=== PATIENT | female | born 1935 | race Caucasian/White ===

== ENCOUNTER 2017-06-13 10:09 | Emergency (ER) | payer BC, MEDICARE ==
[~2017-06-13] VITALS: Ht 160 cm; Wt 59.0 kg
--- NOTE | ~2017-06-13 | CT71 ---
[facility] A Service of [facility] & [facility] RADIOLOGY TEXT RESULTS PATIENT: ETTA MAGANA LOCATION: [facility] : 31 UNIT #: [id number] AGE: [address]: Zack Espinal MD SEX: F ORDER DR: [id number] [facility] [address] [place], [place] [address] [id number] MR#: [id number] #: [id number] NAME: ETTA MAGANA : 1935 SEX: F STUDY DATE/TIME: 06/13/2017 12:26 UNIT: [facility] ROOM: STUDY DESCRIPTION: CT Head Wo Contrast Attending Physician: Zack Espinal M.D. Ordering Physician: Dani Castillo M.D. Primary Care Physician: Glen Ortega M.D. MEDICAL IMAGING REPORT This report is preliminary unless electronic signature is present EXAM Head CT without contrast HISTORY Patient fell and hit back of head. She is an 81-year-old female, and she hit the back of her head on concrete 5 days ago. She has a history of breast cancer and hypertension. TECHNIQUE Routine noncontrast head CT is reviewed. There is no prior study of the brain. This CT exam was performed with one or more of the following radiation dose reduction techniques: automatic exposure control, adjustment of mA and/or kV according to patient size, and iterative reconstruction. FINDINGS There is no displaced calvarial fracture. The mastoid air cells are clear. The visualized paranasal sinuses are clear. There are moderate atherosclerotic vascular calcifications at the base of the brain. There is soft tissue/scalp hematoma seen right paramedian posterior scalp near the vertex about a centimeter in diameter. There is no evidence for acute intracranial hemorrhage or extraaxial fluid collection. There is a small chronic lacune in the right caudate head. There is mild periventricular white matter low-attenuation. These findings are nonspecific but probably due to small vessel disease particularly since there is a history of hypertension. There is no intracranial mass effect. Noncontrast head CT would not be sensitive for intracranial metastatic disease though there is nothing to suggest this possibility of this time. The basilar cisterns are patent, and there is no midline shift. Nothing to suggest acute cortical infarct identified. [facility] A Service of [facility] & [facility] RADIOLOGY TEXT RESULTS PATIENT: ETTA MAGANA LOCATION: [facility] : 31 UNIT #: [id number] AGE: [address]: Zack Espinal MD SEX: F ORDER DR: IMPRESSION 1. No evidence for acute intracranial injury. 2. Small scalp hematoma right parietal paramedian scalp near the vertex. 3. Moderate atherosclerotic vascular calcifications and mild probable sequelae of small vessel disease. Dictated by... Nydia Antoine M.D. THIS IS AN ELECTRONICALLY VERIFIED REPORT Nydia Antoine M.D. at 06/14/2017 7:27 AM Mahednra TD: 06/13/2017 21:01 JOB #: [id number] MEDICAL IMAGING REPORT Page 1 of 1 COPY
[~2017-06-13 10:09] MED LIST: ALLERGY RELIEF10 MG PO; ARIMIDEX; ASPIRIN81 M1; ASPIRIN81 MG PO; ATORVASTATIN CA10 MG PO; CALCIUM 600 MG1 TA3 PO; CALCIUM1 TAB.CHEW PO; CETIRIZINE HCL5 MG PO; CLOPIDOGREL300 MG PO; CRESTOR10 MG; DIOVAN HCT 3201 EAC1; DOLOBID500 MG PO; FISH OIL OMEGA1 EACH PO; LIPITOR PO; MAALOX ADVANCE1 EACH PO; MOTRIN IB200 M1 PO; MULTI VITAMINS W1 MG PO; OMEPRAZOLE40 MG PO; OSTEO-PORETICA1 EACH PO; SKELAXIN PO; TUMS300 MG( 75 PO; TYLENOL ARTHRITIS PO; VITAMIN D2000 UNIT PO; VITAMIN E400 UNI2 PO; WOMEN'S DAILY1 EACH PO; ZANTAC150 M1 PO; ZANTAC150 MG PO; [UNRECOGNIZED DRUG - REMARK]
== END 2017-06-13 13:33 | disposition home or self-care (01) ==
LOC: CED 10:09
DX: S09.90XA Unspecified injury of head, initial encounter (principal); S00.93XA Contusion of unspecified part of head, initial encounter; W19.XXXA Unspecified fall, initial encounter; Y92.009 Unspecified place in unspecified non-institutional (private) residence as the place of occurrence of the external cause
CPT/HCPCS: 70450; 99283